=== PATIENT | female | born 1980 | race Caucasian/White ===

== ENCOUNTER 2017-03-25 23:43 | Emergency (ER) | payer OTHER ==
[2017-03-26 00:32] VITALS: BP 124/74; PULSE 83; TEMP 98.2; BMI 28.5
--- NOTE | 2017-03-26 00:47 | PDOC ---
History of Present Illness - General Chief Complaint: Pain Stated Complaint: ABD PAIN Time Seen by Provider: 03/26/17 00:47 History Source: Patient - History of Present Illness Initial Comments: 03/26/17 02:41 36 year old female c/o epigastric pain 2 hours after eating. pain is intermittent in nature, patient reports that she eats spicy food. denies nausea , vomiting, diarrhea, fever, headache. Past History - Past Medical History Allergies/Adverse Reactions: Allergies Allergy/AdvReac Type Severity Reaction Status Date / Time No Known Allergies Allergy Verified 03/26/17 00:26 Home Medications: Ambulatory Orders Mag Hydrox/Al Hydrox/Simeth [Maalox Advanced Suspension] 30 ml PO TID #1 bottle 03/26/17 Other medical history: denies - Psycho/Social/Smoking Cessation Hx Suicidal Ideation: No Smoking History: Never smoked Have you smoked in the past 12 months: No Information on smoking cessation initiated: No Hx Alcohol Use: No Drug/Substance Use Hx: No Review of Systems - Review of Systems Able to Perform ROS?: Yes Is the patient limited Icelandic proficient: No Constitutional: No: Symptoms Reported, See HPI, Chills, Diaphoresis, Fever, Loss of Appetite, Malaise, Night Sweats, Weakness, Weight Stable, Unintentional Wgt. Loss, Unexplained wgt Loss, Other ABD/GI: Yes: Abdominal cramping (epigastric area) *Physical Exam - Vital Signs Last Vital Signs Temp Pulse Resp BP Pulse Ox 98.2 F 83 14 124/74 99 03/26/17 00:26 03/26/17 00:26 03/26/17 00:26 03/26/17 00:26 03/26/17 00:26 - Physical Exam Respiratory/Chest: positive: Lungs Clear, Normal Breath Sounds Cardiovascular: positive: Regular Rhythm, Regular Rate Gastrointestinal/Abdominal: positive: Normal Bowel Sounds, Soft Musculoskeletal: positive: Normal Inspection Extremity: positive: Normal Capillary Refill, Normal Inspection, Normal Range of Motion Integumentary: positive: Normal Color, Dry, Warm Neurologic: positive: Fully Oriented, Alert, Normal Mood/Affect ED Treatment Course - LABORATORY CBC & Chemistry Diagram: 03/26/17 01:20 03/26/17 01:20 - RADIOLOGY Radiograph Interpretation: 03/28/17 00:45 US: no evidence of cholecystitis Progress Note - Progress Note Progress Note: A: gastritis, r/ o cholecystitis P: cbc cmp abdominal us Ua maalox pepcid IVF outpatient follow up *DC/Admit/Observation/Transfer Diagnosis at time of Disposition: Gastritis Qualifiers: Gastritis type: unspecified gastritis Chronicity: acute Gastritis bleeding: without bleeding Qualified Code(s): K29.00 - Acute gastritis without bleeding - Discharge Dispostion Disposition: HOME - Prescriptions Prescriptions: Mag Hydrox/Al Hydrox/Simeth [Maalox Advanced Suspension] 30 ml PO TID #1 bottle - Referrals Referrals: Edita Tyler MD [Primary Care Provider] - Renny Schmitz MD [Staff Physician] - - Patient Instructions Printed Discharge Instructions: Gastritis, Phillips Diet Additional Instructions: follow up with director of public works as soon as possible. Print Language: CZECH
[2017-03-26] MEDS ORDERED: FAMOTIDINE 20 MG/50 ML IVPB 50 ML IVPB ONE ×2 (00:49→00:53)
[2017-03-26 01:32] LABS: EOSINOPHIL 1.2 % (0-4.5); MCHC 33.1 g/dl (32.0-36.0); MEAN CELL VOLUME 87.8 fl (80-96); MEAN PLT VOLUME 9.5 fl (7.5-11.1); NEUTROPHILS 72.4 % (42.8-82.8); PLATELET COUNT 196 K/MM3 (134-434); RDW 13.9 % (11.6-15.6); WHITE BLOOD COUNT 10.7 K/mm3 (4.0-10.0)
[2017-03-26 01:49] LABS: URINE APPEARANCE CLEAR; URINE BILIRUBIN NEGATIVE (NEGATIVE); URINE BLOOD 1+ (NEGATIVE); URINE GLUCOSE (UA) NEGATIVE (NEGATIVE); URINE KETONE NEGATIVE (NEGATIVE); URINE LEUK ESTERASE NEGATIVE (NEGATIVE); URINE NITRITE NEGATIVE (NEGATIVE); URINE PROTEIN NEGATIVE (NEGATIVE); URINE UROBILINOGEN NEGATIVE mg/dL (0.2-1.0)
[2017-03-26 01:56] LABS: URINE BACTERIA RARE /hpf (NONE SEEN); URINE MUCUS RARE; URINE RBC 1 /hpf (0-3); URINE WBC 1 /hpf (3-5)
[2017-03-26 01:57] LABS: URINE COLOR YELLOW
[2017-03-26 02:03] LABS: ALBUMIN 4.1 g/dl (3.4-5.0); ALK PHOS 90 U/L (45-117); ANION GAP 8 (8-16); BILIRUBIN,TOTAL 0.4 mg/dL (0.2-1.0); CALCIUM 8.8 mg/dL (8.5-10.1); CO2 25 mmol/L (21-32); CREATININE 0.5 mg/dL (0.55-1.02); GLUCOSE,RANDOM 102 mg/dL (74-106); SGPT/ALT 29 U/L (12-78); TOT PROT 7.3 g/dl (6.4-8.2)
[2017-03-26 02:11] LABS: SGOT/AST 26 U/L (15-37)
[2017-03-26] MEDS ORDERED: MAG HYDROX/AL HYDROX/SIMETH 30 ML UNIT-DOSE CUP PO ONE (02:36)
[2017-03-26] MEDS ORDERED: MAG HYDROX/AL HYDROX/SIMETH 30 ML UNIT-DOSE CUP ONE (02:56)
--- NOTE | 2017-03-26 13:02 | EKG ---
Test Reason : Blood Pressure : / mmHG Vent. Rate : 071 BPM Atrial Rate : 071 BPM P-R Int : 130 ms QRS Dur : 074 ms QT Int : 392 ms P-R-T Axes : 050 050 058 degrees QTc Int : 425 ms NORMAL SINUS RHYTHM NONSPECIFIC T WAVE ABNORMALITY ABNORMAL ECG NO PREVIOUS ECGS AVAILABLE Confirmed by LIZZIE BARNES MD ([id number]) on 03/26/2017 1:02:09 PM Referred By: Confirmed By:LIZZIE BARNES MD
== END 2017-03-26 03:20 | disposition home or self-care (01) ==
LOC: JER 23:43
PROC: 3E033GC Introduction of Other Therapeutic Substance into Peripheral Vein, Percutaneous Approach (ICD-10-PCS; principal; 2017-03-25)
DX: K29.00 Acute gastritis without bleeding (principal)
CPT/HCPCS: 36415; 76705-TC; 80053; 81003; 81015; 83690; 84703; 85025; 93005; 93010; 96365; 99283-25

== ENCOUNTER 2020-05-25 10:50 | Emergency (ER) | payer OTHER ==
[2020-05-25 11:06] VITALS: BP 120/69; PULSE 85; TEMP 98.5; BMI 27.8
--- OUTSIDE RECORDS SUMMARY | 2020-05-25 11:21 | XMS ---
:1980 Author Organization [facility] Support Name Relationship Address Phone UE Unavailable Unavailable Unavailable ROSARIO BETH DAUGHTER [address] [phone] [place] [address] NA Unavailable Unavailable Unavailable ROSARIO HELM DA NA ROSARIO DELA CRUZ Child [address] [place] [address] HARLEY Unavailable [address] [place] [place] [address] Re-disclosure Warning The records that you are about to access may contain information from federally- assisted alcohol or drug abuse programs. If such information is present, then the following federally mandated warning applies: This information has been disclosed to you from records protected by federal confidentiality rules (42 CFR part 2). The federal rules prohibit you from making any further disclosure of this information unless further disclosure is expressly permitted by the written consent of the person to whom it pertains or as otherwise permitted by 42 CFR part 2. A general authorization for the release of medical or other information is NOT sufficient for this purpose. The Federal rules restrict any use of the information to criminally investigate or prosecute any alcohol or drug abuse patient.The records that you are about to access may contain highly sensitive health information, the redisclosure of which is protected by Article 27-F of the [facility] Public [facility] law. If you continue you may haveaccess to information: Regarding HIV / AIDS; Provided by facilities licensed or operated by the [facility] Office of Mental Health; or Provided by the [facility] Office for People With Developmental Disabilities. If such information is present, then the following [facility] mandated warning applies: This information has been disclosed to you from confidential records which are protected by state law. State law prohibits you from making any further disclosure of this information without the specific written consent of the person to whom it pertains, or as otherwise permitted by law. Any unauthorized further disclosure in violation of state law may result in a fine or care home sentence or both. A general authorization for the release of medical or other information is NOT sufficient authorization for further disclosure. Allergies and Adverse Reactions Type Description Substance Reaction Status Data Source(s ) No Known No Known Allergies No Known eCW3 ( [facility]) Encounters Encounter Providers Location Date Indications Data Source(s ) Emergency H 12/18/2018 [facility] 06:00:00 PM Medical Cente r EDT Outpatient [facility] 12/09/2018 eCW3 ([facility] 12:00:00 AM Health Care) EDT - 12/09/2018 12:00:00 AM EDT Medications Medication Brand Start Product Dose Route Administrative Pharmacy [facility] Indications Reaction Description Data Name Date Form Instructions Instructions Source(s) Calcium UNK active Calcium eCW3 ([facility]) Mirena UNK active Mirena eCW3 ([facility]) Ranitidine raniti 1 complet Corrie t 150 MG Oral dine ed [facility] Tablet HCl Medical ranitidine 150 mg Center HCl 150 mg Tablet Tablet, , Ordered By: Kirby López d By: Riddhi Israel ns: 1 Penar, tablet oral FNPDir daily ection s: 1 tablet oral daily Prednisone predni 2 complet Corrie t 20 MG Oral SONE ed Cristian Tablet 20 mg Medical predniSONE Tablet Center 20 mg , Tablet, Ordere Ordered By: d By: tanika KcPDirectronald Penar, ns: 2 FNPDir tablet oral ection daily s: 2 tablet oral daily Diphenhydra diphen 1 complet Imtiaz nt mine hydram ed Cristian Hydrochlori ine Medical de 25 MG HCl 25 Center Oral mg Capsule Capsul diphenhydra e, mine HCl 25 Ordere mg Capsule, d By: Ordered By: Jhonatan Forrest FNPDirectio FNPDir ns: 1 ection capsule s: 1 oral every capsul six hours e oral PRN itching every six hours PRN itchin g Fluconazole Flucon 1.0 active Fluconazo le eCW3 150 MG Oral azole {tabl 150 MG [facility] [facility] Metronidazo Flagyl 1.0 active Flagyl 50 0 eCW3 le 500 MG 500 MG {tabl MG ([facility] Oral Tablet et} [place] [Flagyl] [facility] Flagyl 500 Care) MG Insurance Providers Payer name Policy type Policy ID Covered Covered libertarian's Policy P lani / Coverage libertarian ID relationship to [employer] Inf ormation type mejia MEDICAID [id number] SP [id number] W [id number] 01 [id number] Problems, Conditions, and Diagnoses Code Display Name Description Problem Type Effective Data Sour ce(s) Dates Z97.5 IUD contraception IUD contraception Problem 11/18/2016 eCW3 ([facility] 12:00:00 AM [facility] Care) H11.002 Pterygium of left Pterygium of left Problem 11/18/2016 eCW3 ([facility] 12:00:00 AM [facility]) L25.9 Unspecified UNSPECIFIED Diagnosis 12/18/2018 [place] s contact CONTACT 06:00:00 PM Medical Cente r dermatitis, DERMATITIS, EDT unspecified cause UNSPECIFIED CAUSE R21 Rash and other RASH AND OTHER Diagnosis 12/18/2018 [facility] nonspecific skin NONSPECIFIC SKIN 06:00:00 PM edical [place] eruption ERUPTION EDT Social History Code Duration Value Status Description Data Source(s ) Smoking 12/18/2018 Denies Ever completed Denies Ever Smoked [facility] 06:16:00 PM EDT Smoked Medical C enter Smoking 12/18/2018 Denies Ever completed Denies Ever Smoked [facility] 06:16:00 PM EDT Smoked Medical C enter Smoking 12/18/2018 Denies Ever completed Denies Ever Smoked [facility] 06:03:00 PM EDT Smoked Medical C enter Smoking 12/09/2018 Never Smoker completed Never Smoker eCW3 ([place] [facility] 12:[facility]:00 AM EDT [facility]) Never Smoker completed Never Smoker eCW3 ([facility]) Vital Signs ID Date Data Source UNK Name Value Range Interpretation Code Description Data Source(s) Oxygen saturation 100 % 100 % [facility] in Arterial blood [facility] Center by Pulse oximetry Heart rate 84 /min 84 /min [facility] Body weight 55.022165 kg 55.933516 kg [facility] Body temperature 37.926610 37.232182 [facility] Respiratory rate 18 /min 18 /min [facility] Oxygen saturation 98 % 98 % [facility] in Arterial blood [facility] Center by Pulse oximetry Heart rate 95 /min 95 /min [facility] Body height 162.747118 162.325053 cm [facility] Diastolic blood 74 mm[Hg] 74 mm[Hg] [facility] pressure [facility] Systolic blood 130 mm[Hg] 130 mm[Hg] [facility] pressure [facility] Body mass index 20.8 kg/m2 20.8 kg/m2 [facility] (BMI) [Ratio] Medical [facility] [facility] Diastolic blood 64 mm[Hg] 64 mm[Hg] eCW3 ([facility]) Systolic blood 116 mm[Hg] 116 mm[Hg] eCW3 ([facility]) Body temperature 97.3 [degF] 97.3 [degF] eCW3 ( [facility]) Body mass index 28.47 kg/m2 28.47 kg/m2 eCW3 ( [place] (BMI) [Ratio] [facility]) Body weight 147 [lb_av] 147 [lb_av] eCW3 ([facility]) Body height 60.25 [in_i] 60.25 [in_i] eCW3 ([facility]) Patient Treatment Plan of Care Planned Activity Planned Date Details Description Data Source (s) Ranitidine 150 MG Oral Tablet [facility] Diphenhydramine Hydrochloride [facility] 25 MG Oral Capsule [place] Prednisone 20 MG Oral Tablet [facility]
[2020-05-25] MEDS ORDERED: LIDOCAINE 5% TOPICAL PATCH TP ONE (11:32)
[2020-05-25] MEDS ORDERED: KETOROLAC TROMETHAMINE 60 MG/2 ML VIAL IM ONE (11:32)
[2020-05-25] MEDS ORDERED: diazePAM 2 MG TABLET PO ONE (11:33)
[2020-05-25] MEDS ORDERED: LIDOCAINE 5% TOPICAL PATCH ONE (11:36)
[2020-05-25] MEDS ORDERED: diazePAM 2 MG TABLET ONE (11:37)
[2020-05-25] MEDS ORDERED: KETOROLAC TROMETHAMINE 30 MG/1 ML VIAL ONE (11:37)
--- NOTE | 2020-05-25 12:29 | PDOC ---
History of Present Illness - General Chief Complaint: Back Pain Stated Complaint: LWR BACK PAIN Time Seen by Provider: 05/25/20 11:11 History Source: Patient Exam Limitations: No Limitations Past History - Travel History Traveled outside of the country in the last 30 days: No Close contact w/someone who was outside of country & ill: No - Medical History Allergies/Adverse Reactions: Allergies Allergy/AdvReac Type Severity Reaction Status Date / Time No Known Allergies Allergy Verified 05/25/20 11:01 Home Medications: Ambulatory Orders Mag Hydrox/Aluminum Hyd/Simeth [Maalox Advanced Suspension] 30 ml PO TID #1 bottle 03/26/17 Cyclobenzaprine HCl [Flexeril 10 mg] 5 mg PO BID PRN #12 tablet 05/19/20 Methocarbamol [Robaxin -] 500 mg PO BID #14 tablet 05/25/20 Methylprednisolone [Medrol Dose Eber] 4 mg PO ASDIR #21 tablet 05/25/20 COPD: No - Reproductive History Is Patient Now?: No - Psycho-Social/Smoking History Smoking History: Never smoked Have you smoked in the past 12 months: No - Substance Abuse Hx (Audit-C & DAST Scrn) How often the patient has a drink containing alcohol: Never Score: In Men: 4 or > Positive; In Women: 3 or > Positive: 0 Screen Result (Pos requires Nsg. Audit-10AR): Negative In the last yr the pt used illegal drug/Rx for NonMed reason: No Score: Yes response is considered Positive: 0 Screen Result (Positive result requires Nsg. DAST-10): Negative Review of Systems - Review of Systems Able to Perform ROS?: Yes Comments:: 05/25/20 11:46 CONSTITUTIONAL: Absent: fever, chills, diaphoresis, generalized weakness, malaise, loss of appetite GASTROINTESTINAL: Absent: abdominal pain, abdominal distension, nausea, vomiting, diarrhea, constipation, melena, hematochezia GENITOURINARY: Absent: dysuria, frequency, urgency, hesitancy, hematuria, flank pain, genital pain MUSCULOSKELETAL: Present: low back pain,Left lower leg pain Absent: arthralgia, joint swelling SKIN: Absent: rash, itching, pallor NEUROLOGIC: Absent: headache, focal weakness or paresthesias, dizziness, unsteady gait, seizure, mental status changes, bladder or bowel incontinence PSYCHIATRIC: Absent: anxiety, depression, suicidal or homicidal ideation, hallucinations. Is the patient limited Ukrainian proficient: No *Physical Exam - Vital Signs Last Vital Signs Temp Pulse Resp BP Pulse Ox 98.5 F 85 16 120/69 100 05/25/20 11:02 05/25/20 11:02 05/25/20 11:02 05/25/20 11:02 05/25/20 11:02 - Physical Exam 05/25/20 11:47 GENERAL: Well developed, well nourished. Awake and alert. No acute distress. NECK: Supple. Full ROM. No lymphadenopathy. MUSCULOSKELETAL Normal range of motion at all joints. No bony deformities or tenderness. No CVA tenderness. EXTREMITIES: No cyanosis. No clubbing. No edema. No calf tenderness. SKIN: Warm and dry. Normal capillary refill. No rashes. No jaundice. NEUROLOGICAL: Alert, awake, appropriate. Cranial nerves 2-12 intact. No deficits to light touch and temperature in face, upper extremities and lower extremities. No motor deficits in the in face, upper extremities and lower extremities. Normoreflexic in the upper and lower extremities. Normal speech. Toes are down-going bilaterally. Gait is normal without ataxia. PSYCHIATRIC: Cooperative. Good eye contact. Appropriate mood and affect. ED Treatment Course - RADIOLOGY Radiology Studies Ordered: Category Date Time Status DUPLEX VASCUL US-1 LEG [US] Stat Ultrasound 05/25/20 11:32 Ordered - Medications Given in the ED: ED Medications Discontinued Medications Generic Name Dose Route Start Last Admin Trade Name Freq PRN Reason Stop Dose Admin Diazepam 2 mg 05/25/20 11:33 05/25/20 11:39 Valium - PO 05/25/20 11:34 2 mg ONCE ONE Administration Ketorolac Tromethamine 30 mg 05/25/20 11:32 05/25/20 11:39 Toradol Injection - IM 05/25/20 11:33 30 mg ONCE ONE Administration Lidocaine 1 patch 05/25/20 11:32 05/25/20 11:39 Lidoderm Patch - TP 05/25/20 11:33 1 patch ONCE ONE Administration Medical Decision Making - Medical Decision Making 05/25/20 11:47 The patient is a 39-year-old female who presents to the ER today for lower back pain for the past week. She states that this morning the pain is going down her left lower leg which brought her to the ER for evaluation. She states that she saw her primary care doctor yesterday and was prescribed naproxen however it has not helped her symptoms. She states that she also has this lump behind her left knee and was told to come for an ultrasound to evaluate for possibility of a blood clot. She states she has seen a chiropractor for her sciatica in the past and states that her back pain feels like her usual sciatica at this time. Denies numbness and tingling and weakness to the affected extremity, saddle anesthesia and bladder bowel incontinence. A/P: Sciatica/low back pain -Pt with TTP of the L paraspinous muscles with midline tenderness, L3-L5, with palpable knot consistent with muscle spasm. (+) straight leg raise testing on the L. Soft tissue edema to the posterior knee. -No trauma, or fever. No saddle anesthesia or bladder/bowel incontinence. No CVA tenderness. -Pt is neurologically intact on exam with no focal findings. -Ultrasound of soft tissue edema shows no evidence of blood clot or Lema's cyst at this time. Does not appear infectious. Will have patient follow-up with her primary care doctor. -Toradol, lidocane patch, valium, given with relief of symptoms -DC home. Ortho follow up given for if symptoms do not resolve. -I discussed the physical exam findings, ancillary test results and final diagnoses with the patient. I answered all of the patient's questions. The patient was satisfied with the care received and felt comfortable with the discharge plan and treatment plan. The Patient agrees to follow up with the primary care physician/specialist within 24-72 hours. Return precautions were given. Discharge - Discharge Information Problems reviewed: Yes Clinical Impression/Diagnosis: Low back pain Qualifiers: Chronicity: acute Back pain laterality: left Sciatica presence: with sciatica Sciatica laterality: sciatica of left side Qualified Code(s): M54.42 - Lumbago with sciatica, left side Condition: Stable Disposition: HOME - Admission No - Follow up/Referral Referrals: Boubacar Valdez DO [Staff Physician] - - Patient Discharge Instructions Patient Printed Discharge Instructions: DI for Low Back Pain Additional Instructions: You have low back pain due to a muscle spasm. Please take the medrol dose as directed. You were also prescribed robaxin; this is a muscle relaxer. Please take this medication every 8 hours for the first day. Then take the medication before you go to bed. Do not drive after taking this medication as it may make you sleepy. You may use warm compresses on your back to help with her symptoms. Please follow-up with your primary care doctor. If your symptoms do not resolve in 3-5 days, follow-up with orthopedics. A referral has been provided for you. Your ultrasound did not show any evidence of a blood clot. Return to the emergency department if you have worsening back pain, bladder or bowel incontinence, numbness and tingling in her legs, changes in the way you walk, or any new or worsening symptoms. Tiene dolor lumbar debido a un espasmo muscular. Por favor, tome la dosis de medrol sandeep se indica. Angelina le recetaron robaxin; maria eugenia es un relajante muscular. Por favor, tome maria eugenia medicamento cada 8 horas shireen el primer da. Luego teresita el medicamento antes de irte a la cama. No conduzca despus de christiane maria eugenia medicamento, ya que puede causarle sueo. Puedes usar compresas calientes en la espalda para ayudar con mary sntomas. Por favor, jessi un seguimiento con cid mdico de atencin primaria. Si mary sntomas no se resuelven en 3-5 tubbs, jessi un seguimiento con ortopedia. Se le sagastume proporcionado angelika referencia. La ecografa no mostr evidencia de un cogulo de charles. Regresa al departamento de emergencias si tienes un empeoramiento del dolor de espalda, incontinencia vesical o intestinal, entumecimiento y hormigueo en mary piernas, cambios en la forma de caminar o cualquier sntoma nuevo o que empeore. Print Language: MOHAWK - Post Discharge Activity Work/Back to School Note: Back to Work
[2020-05-25] MEDS ORDERED: LIDOCAINE PATCH REMOVAL MC SCH (22:00)
== END 2020-05-25 13:43 | disposition home or self-care (01) ==
LOC: JERFT 10:50
PROC: 3E0233Z Introduction of Anti-inflammatory into Muscle, Percutaneous Approach (ICD-10-PCS; principal; 2020-05-25)
DX: M54.42 Lumbago with sciatica, left side (principal)
CPT/HCPCS: 93971-TC; 99284-25

== ENCOUNTER 2020-06-14 21:44 | Emergency (ER) | payer OTHER ==
[2020-06-14 21:56] VITALS: BP 146/84; PULSE 95; TEMP 98.6; BMI 28.5
--- OUTSIDE RECORDS SUMMARY | 2020-06-14 22:03 | XMS ---
:1980 Author Organization [facility] Support Name Relationship Address Phone ASA HARLEY PARTNER [address] [phone] [place] [address] UE Unavailable Unavailable Unavailable HELM ROSARIO DELA CRUZ DAUGHTER [address] [place] [address] NA Unavailable Unavailable Unavailable HELM ROSARIO DA NA DELA CRUZ ROSARIO HELM Child [address] [place] [address] HARLEY Unavailable [address] [place] [address] Re-disclosure Warning The records that you are [...] is protected by Article 27-F of the [facility] Public Health law. If you continue you may haveaccess to information: Regarding HIV / AIDS; Provided by facilities licensed or operated by the [facility] Office of Mental Health; or Provided by the [facility] Office for People With Developmental Disabilities. If such information is present, then the following [facility] mandated warning applies: This information has been [...] law may result in a fine or half-way sentence or both. A general authorization for the release of medical or other information is NOT sufficient authorization for further disclosure. Insurance Providers Payer name Policy type Policy ID Covered Covered constitution party's Policy P lani / Coverage constitution party ID relationship to [employer] Inf ormation type me[place] MEDICAID [id number] SP [id number] CANCER [id number] SP [id number] SERVICE PROGRAM W [id number]
--- NOTE | 2020-06-14 23:57 | PDOC ---
History of Present Illness - General Chief Complaint: Rash Stated Complaint: HIVES/ PAIN LS ARM PAIN Time Seen by Provider: 06/14/20 23:41 History Source: Patient Exam Limitations: No Limitations - History of Present Illness Initial Comments: 06/15/20 00:00 39-year-old female no past medical history with left shoulder rash for 1 day. Patient states that she noticed a itchy painful rash on her left shoulder that is described as burning. Patient states the pain radiates towards her left arm. Patient put Benadryl cream on without any relief. Denies any contact with individuals. Denies any other symptoms including chest pain fevers chills shortness of breath dyspnea on exertion. Past History - Medical History Allergies/Adverse Reactions: Allergies Allergy/AdvReac Type Severity Reaction Status Date / Time No Known Allergies Allergy Verified 05/25/20 11:01 Home Medications: Ambulatory Orders Mag Hydrox/Aluminum Hyd/Simeth [Maalox Advanced Suspension] 30 ml PO TID #1 bottle 03/26/17 Cyclobenzaprine HCl [Flexeril 10 mg] 5 mg PO BID PRN #12 tablet 05/19/20 Methocarbamol [Robaxin -] 500 mg PO BID #14 tablet 05/25/20 Methylprednisolone [Medrol Dose Eber] 4 mg PO ASDIR #21 tablet 05/25/20 Ibuprofen [Ibu] 600 mg PO TID #21 tablet 06/14/20 Prednisone [Prednisone 50 MG TABLETS] 50 mg PO DAILY #5 tablet 06/14/20 Valacyclovir HCl [Valtrex] 1,000 mg PO TID #21 tablet 06/14/20 COPD: No - Reproductive History Is Patient Now?: No - Psycho-Social/Smoking History Smoking History: Never smoked Have you smoked in the past 12 months: No - Substance Abuse Hx (Audit-C & DAST Scrn) How often the patient has a drink containing alcohol: Never Score: In Men: 4 or > Positive; In Women: 3 or > Positive: 0 Screen Result (Pos requires Nsg. Audit-10AR): Negative In the last yr the pt used illegal drug/Rx for NonMed reason: No Score: Yes response is considered Positive: 0 Screen Result (Positive result requires Nsg. DAST-10): Negative *Physical Exam - Vital Signs Last Vital Signs Temp Pulse Resp BP Pulse Ox 98.6 F 95 H 18 146/84 98 06/14/20 21:52 06/14/20 21:52 06/14/20 21:52 06/14/20 21:52 06/14/20 21:52 - Physical Exam Gen: AAOx 3, no acute distress, comfortable, no signs of respiratory distress HENT: atraumatic, normocephalic with no laceration or contusion. Nasal mucosa without erythema. Oropharynx without erythema or exudates. Mucous membranes moist. EYES: PERRL, EOM intact, conjunctiva pink NECK: supple; trachea midline; no JVD, no lymphadenopathy, or thyromegaly CV: RRR no murmurs, gallops, or rubs. CHEST: CTA b/l no wheezing, rales or rhonchi ABD: +BS/ND. no TTP; soft, no rebound, no guarding EXTREMITY: no cyanosis or erythema. 2+ dorsalis pedis, posterior tibial, and radial pulse. No pedal edema; no calf swelling or tenderness SKIN: There is a vesicular linear rash to the left shoulder with weeping lesions consistent with herpes zoster warm and dry, no diaphoresis NEURO: normal speech, CN II-XII intact, sensation intact, normal gait, no cerebellar deficits MS: 5/5 strength in all extremities, FROM intact in all extremities. Medical Decision Making - Medical Decision Making 06/15/20 00:02 39-year-old female with rash consistent with shingles Vital signs stable Will discharge with Valtrex ibuprofen and 5-day course of prednisone Isolation precautions from people as well as others who have not had chickenpox or the vaccine given Patient to follow-up with PCP and neurology Pt appears well and is safe and stable for discharge with strict return precautions including signs and symptoms requring immediate return to the ED Supportive care instructions explained and given to pt. Reasons to return emergently to ER explained and given. Importance of follow up with PMD and other specialists as indicated stressed to pt. Pt verbalized understanding of instructions. Pt to follow up with PMD in 2 days. Discharge - Discharge Information Problems reviewed: Yes Clinical Impression/Diagnosis: Shingles Qualifiers: Herpes zoster complications: unspecified herpes zoster complication Qualified Code(s): B02.8 - Zoster with other complications Condition: Stable Disposition: HOME - Additional Discharge Information Prescriptions: Ibuprofen [Ibu] 600 mg PO TID #21 tablet Prednisone [Prednisone 50 MG TABLETS] 50 mg PO DAILY #5 tablet Valacyclovir HCl [Valtrex] 1,000 mg PO TID #21 tablet - Follow up/Referral Referrals: Chava Mistry MD [Staff Physician] - Esmer Cordova MD [Staff Physician] - - Patient Discharge Instructions Patient Printed Discharge Instructions: VERONIKA for [place] Print Language: BELIZEAN - Post Discharge Activity Work/Back to School Note: Back to Work
--- NOTE | 2020-06-14 23:58 | PDOC ---
*Physical Exam - Vital Signs Last Vital Signs Temp Pulse Resp BP Pulse Ox 98.6 F 95 H 18 146/84 98 06/14/20 21:52 06/14/20 21:52 06/14/20 21:52 06/14/20 21:52 06/14/20 21:52 Medical Decision Making - Medical Decision Making 06/14/20 23:58 Patient seen by the advanced practice provider under my supervision. Ancillary testing reviewed as necessary. I agree with plan as outlined by the advanced practice provider. Discharge - Discharge Information Problems reviewed: Yes Clinical Impression/Diagnosis: Shingles Qualifiers: Herpes zoster complications: unspecified herpes zoster complication Qualified Code(s): B02.8 - Zoster with other complications Condition: Stable Disposition: HOME - Additional Discharge Information Prescriptions: Ibuprofen [Ibu] 600 mg PO TID #21 tablet Prednisone [Prednisone 50 MG TABLETS] 50 mg PO DAILY #5 tablet Valacyclovir HCl [Valtrex] 1,000 mg PO TID #21 tablet - Follow up/Referral Referrals: Chava Mistry MD [Staff Physician] - Esmer Cordova MD [Staff Physician] - - Patient Discharge Instructions Patient Printed Discharge Instructions: DI for Shingles Print Language: AUSTR[place]IAN - Post Discharge Activity Work/Back to School Note: Back to Work
== END 2020-06-15 00:15 | disposition home or self-care (01) ==
LOC: JER 21:44
DX: B02.8 Zoster with other complications (principal)
CPT/HCPCS: 99283-25

== ENCOUNTER 2020-10-18 14:13 | Emergency (ER) | payer OTHER ==
[2020-10-18 14:20] VITALS: BMI 30.2
[2020-10-18 16:05] LABS: BASO % 0.7 % (0-2.0); EOS % 2.5 % (0-4.5); HEMATOCRIT 40.6 % (32.4-45.2); HEMOGLOBIN 13.7 GM/dL (10.7-15.3); LYMPH % 33.9 % (8-40); MCH 30.2 pg (25.7-33.7); MCHC 33.7 g/dl (32.0-36.0); MEAN CELL VOLUME 89.6 fl (80-96); MEAN PLT VOLUME 9.5 fl (7.5-11.1); MONO % 7.5 % (3.8-10.2); NEUT % 55.4 % (42.8-82.8); PLATELET COUNT 237 K/MM3 (134-434); RBC 4.53 M/mm3 (3.60-5.2); WHITE BLOOD COUNT 6.2 K/mm3 (4.0-10.0)
[2020-10-18 16:22] LABS: INR 0.96 (0.83-1.09); PROTHROMBIN TIME (PATIENT) 11.6 SEC (9.7-13.0)
[2020-10-18 16:28] LABS: CHLORIDE 108 mmol/L (98-107); POTASSIUM 4.3 mmol/L (3.5-5.1); SODIUM 140 mmol/L (136-145)
[2020-10-18 16:30] LABS: ALBUMIN 4.1 g/dl (3.4-5.0); ANION GAP 4 MMOL/L (8-16); BLOOD UREA NITROGEN 13.4 mg/dL (7-18); CALCIUM 9.3 mg/dL (8.5-10.1); CO2 28 mmol/L (21-32)
[2020-10-18 16:31] LABS: GLUCOSE,RANDOM 79 mg/dL (74-106)
[2020-10-18 16:34] LABS: CREATININE 0.6 mg/dL (0.55-1.3); SGOT/AST 22 U/L (15-37); SGPT/ALT 27 U/L (13-61)
[2020-10-18 16:35] LABS: BILIRUBIN,TOTAL 0.2 mg/dL (0.2-1); TOT PROT 7.6 g/dl (6.4-8.2)
[2020-10-18 16:36] LABS: ALK PHOS 94 U/L (45-117)
[2020-10-18 18:10] VITALS: BP 144/91; PULSE 78
== END 2020-10-18 18:10 | disposition home or self-care (01) ==
LOC: JER 14:13
DX: R07.89 Other chest pain (principal); M54.2 Cervicalgia
CPT/HCPCS: 36415; 71046-TC-FY; 80053; 82550; 84484; 85025; 85610; 93005; 93010; 99285-25; C9803; U0003

== ENCOUNTER 2021-03-03 01:14 | Emergency (ER) | payer OTHER ==
[2021-03-03 01:59] VITALS: TEMP 97.3; BMI 28.0
[2021-03-03] MEDS ORDERED: LACTATED RINGERS SOLUTION 1000 ML INFUS.BAG IV ONE (03:05)
[2021-03-03] MEDS ORDERED: ACETAMINOPHEN 1000 MG/100 ML VIAL (NON FORMULARY) IVPB ONE (03:05)
[2021-03-03] MEDS ORDERED: ACETAMINOPHEN INJECTION 100 ML IVPB ONE (03:25)
[2021-03-03 03:40] LABS: BASO % 0.2 % (0-2.0); EOS % 0.5 % (0-4.5); HEMATOCRIT 41.4 % (32.4-45.2); LYMPH % 3.7 % (8-40); MCH 29.5 pg (25.7-33.7); MCHC 33.7 g/dl (32.0-36.0); MEAN CELL VOLUME 87.3 fl (80-96); MEAN PLT VOLUME 8.9 fl (7.5-11.1); MONO % 6.4 % (3.8-10.2); NEUT % 89.2 % (42.8-82.8); PLATELET COUNT 222 10^3/uL (134-434); RBC 4.75 M/mm3 (3.60-5.2); RDW 13.1 % (11.6-15.6); WHITE BLOOD COUNT 18.1 K/mm3 (4.0-10.0)
[2021-03-03] MEDS ORDERED: MAG HYDROX/AL HYDROX/SIMETH 30 ML UNIT-DOSE CUP PO ONE (03:46)
[2021-03-03] MEDS ORDERED: MAG HYDROX/AL HYDROX/SIMETH 30 ML UNIT-DOSE CUP ONE (04:00)
[2021-03-03 04:16] LABS: CHLORIDE 107 mmol/L (98-107); SODIUM 138 mmol/L (136-145)
[2021-03-03 04:18] LABS: CALCIUM 8.6 mg/dL (8.5-10.1)
[2021-03-03 04:19] LABS: ALBUMIN 4.1 g/dl (3.4-5.0); ANION GAP 9 MMOL/L (8-16); BLOOD UREA NITROGEN 18.2 mg/dL (7-18); CO2 23 mmol/L (21-32); GLUCOSE,RANDOM 119 mg/dL (74-106); LIPASE 125 U/L (73-393)
[2021-03-03 04:22] LABS: SGOT/AST 22 U/L (15-37); SGPT/ALT 38 U/L (13-61)
[2021-03-03 04:23] LABS: BILIRUBIN,TOTAL 0.2 mg/dL (0.2-1); TOT PROT 7.5 g/dl (6.4-8.2)
[2021-03-03 04:25] LABS: ALK PHOS 99 U/L (45-117)
[2021-03-03 04:49] LABS: CREATININE 0.6 mg/dL (0.55-1.3)
[2021-03-03 05:20] LABS: URINE APPEARANCE Clear; URINE BILIRUBIN Negative (NEGATIVE); URINE COLOR Yellow; URINE GLUCOSE (UA) Negative (NEGATIVE); URINE KETONE Negative (NEGATIVE); URINE LEUK ESTERASE Negative (NEGATIVE); URINE NITRITE Negative (NEGATIVE); URINE PROTEIN Negative (NEGATIVE); URINE UROBILINOGEN 0.2 mg/dL (0.2-1.0)
[2021-03-03 06:45] VITALS: BP 121/75; PULSE 84
== END 2021-03-03 06:50 | disposition home or self-care (01) ==
LOC: JER 01:14
PROC: 3E0333Z Introduction of Anti-inflammatory into Peripheral Vein, Percutaneous Approach (ICD-10-PCS; principal; 2021-03-03)
DX: R10.84 Generalized abdominal pain (principal)
CPT/HCPCS: 36415; 74177-TC; 80053; 81003; 82550; 83690; 84484; 84703; 85025; 86850; 86900; 86901; 87086; 93005; 93010; 99285-25; J0131; Q9967

== ENCOUNTER 2022-01-09 07:27 | Emergency (ER) | payer OTHER ==
[2022-01-09 07:48] VITALS: BP 132/87; PULSE 113; TEMP 98.2; BMI 24.0
[2022-01-09] MEDS ORDERED: ACETAMINOPHEN 500 MG TABLET (FP) PO ONE (08:58)
[2022-01-09] MEDS ORDERED: ACETAMINOPHEN 500 MG TABLET (FP) ONE (09:17)
== END 2022-01-09 09:37 | disposition home or self-care (01) ==
LOC: JER 07:27
DX: R07.0 Pain in throat (principal)
CPT/HCPCS: 0241U-QW; 87651; 87807; 99283-25; C9803-CS; U0003; U0005

== ENCOUNTER 2022-08-12 21:13 | Emergency (ER) | payer OTHER ==
[2022-08-12 21:38] VITALS: BP 115/58; PULSE 93; RESP 20; TEMP 98.1; BMI 24.0
[2022-08-12] MEDS ORDERED: LIDOCAINE PATCH REMOVAL MC SCH (22:00)
[2022-08-12] MEDS ORDERED: LIDOCAINE 5% TOPICAL PATCH ONE (23:09)
[2022-08-12] MEDS ORDERED: LIDOCAINE 5% TOPICAL PATCH TP ONE (23:09)
[2022-08-12] MEDS ORDERED: KETOROLAC TROMETHAMINE 30 MG/1 ML VIAL IM ONE (23:09)
[2022-08-12] MEDS ORDERED: KETOROLAC TROMETHAMINE 30 MG/1 ML VIAL ONE (23:09)
== END 2022-08-12 23:14 | disposition home or self-care (01) ==
LOC: JER 21:13
PROC: 3E023GC Introduction of Other Therapeutic Substance into Muscle, Percutaneous Approach (ICD-10-PCS; principal; 2022-08-12)
DX: M54.42 Lumbago with sciatica, left side (principal)
CPT/HCPCS: 99284-25

== ENCOUNTER 2022-09-28 08:57 | Emergency (ER) | payer OTHER ==
[2022-09-28 09:09] VITALS: BP 119/67; PULSE 90; RESP 18; TEMP 98.1; BMI 21.9
[2022-09-28] MEDS ORDERED: KETOROLAC TROMETHAMINE 30 MG/1 ML VIAL IM ONE (10:10)
[2022-09-28] MEDS ORDERED: ACETAMINOPHEN 500 MG TABLET (FP) PO ONE (10:10)
[2022-09-28] MEDS ORDERED: predniSONE 20 MG TABLET (UD) PO ONE (10:10)
[2022-09-28] MEDS ORDERED: LIDOCAINE 5% TOPICAL PATCH TP ONE (10:10)
[2022-09-28] MEDS ORDERED: predniSONE 20 MG TABLET (UD) ONE (11:14)
[2022-09-28] MEDS ORDERED: KETOROLAC TROMETHAMINE 30 MG/1 ML VIAL ONE (11:14)
[2022-09-28] MEDS ORDERED: ACETAMINOPHEN 500 MG TABLET (FP) ONE (11:14)
[2022-09-28] MEDS ORDERED: LIDOCAINE 5% TOPICAL PATCH ONE (11:14)
[2022-09-28] MEDS ORDERED: LIDOCAINE PATCH REMOVAL MC SCH (22:00)
== END 2022-09-28 11:30 | disposition home or self-care (01) ==
LOC: JERFT 08:57 → JER 08:57 → JERFT 11:30
PROC: 3E0233Z Introduction of Anti-inflammatory into Muscle, Percutaneous Approach (ICD-10-PCS; principal; 2022-09-28)
DX: M54.32 Sciatica, left side (principal)
CPT/HCPCS: 99284-25

== ENCOUNTER 2022-12-09 18:39 | Emergency (ER) | payer OTHER ==
[2022-12-09 19:00] VITALS: BP 136/75; PULSE 82; RESP 16; TEMP 97.6; BMI 26.4
[2022-12-09] MEDS ORDERED: KETOROLAC TROMETHAMINE 30 MG/1 ML VIAL IM ONE (22:05)
[2022-12-09] MEDS ORDERED: KETOROLAC TROMETHAMINE 30 MG/1 ML VIAL ONE (22:14)
== END 2022-12-09 22:28 | disposition home or self-care (01) ==
LOC: JERFT 18:39
PROC: 3E0233Z Introduction of Anti-inflammatory into Muscle, Percutaneous Approach (ICD-10-PCS; principal; 2022-12-09)
DX: M25.562 Pain in left knee (principal); G89.29 Other chronic pain
CPT/HCPCS: 73564-TC-LT-FY; 99284-25

== ENCOUNTER 2023-10-02 18:10 | Emergency (ER) | payer OTHER ==
[2023-10-02 18:38] VITALS: BP 153/88; PULSE 89; RESP 18; TEMP 98.2; BMI 25.4
[2023-10-02] MEDS ORDERED: ACETAMINOPHEN 325 MG TABLET (FP) PO ONE (19:47)
[2023-10-02] MEDS ORDERED: LIDOCAINE 4% PATCH TP ONE ×2 (19:48→19:51)
[2023-10-02] MEDS ORDERED: IBUPROFEN 400 MG TABLET (FP) PO ONE ×2 (19:48→19:51)
[2023-10-02] MEDS ORDERED: ACETAMINOPHEN 325 MG TABLET (FP) ONE (19:51)
[2023-10-02] MEDS ORDERED: LIDOCAINE PATCH REMOVAL MC SCH (22:00)
== END 2023-10-02 20:11 | disposition home or self-care (01) ==
LOC: JERFT 18:10
DX: M54.2 Cervicalgia (principal)
CPT/HCPCS: 99283-25

== ENCOUNTER 2025-04-29 18:51 | Emergency (ER) | payer OTHER ==
[2025-04-29 19:18] VITALS: BP 140/82; PULSE 82; RESP 18; TEMP 98.6; BMI 25.4
[2025-04-29 19:58] LABS: HCG,QUALITATIVE URINE Negative
[2025-04-29 20:11] LABS: EPI CELLS 5 /uL (0-25.1); HYALINE CASTS 12 /uL (0-3.1); URINE APPEARANCE CLEAR; URINE BACTERIA 90 /uL (0-1359); URINE BILIRUBIN NEGATIVE (NEGATIVE); URINE COLOR YELLOW; URINE GLUCOSE (UA) NEGATIVE (NEGATIVE); URINE KETONE TRACE (NEGATIVE); URINE LEUK ESTERASE 1+ (NEGATIVE); URINE NITRITE NEGATIVE (NEGATIVE); URINE PROTEIN NEGATIVE (NEGATIVE); URINE RBC 69 /uL (0-23.9); URINE UROBILINOGEN 1.0 mg/dL (0.2-1.0); URINE WBC 593 /uL (0-25.8)
[2025-04-29] MEDS ORDERED: PHENAZOPYRIDINE HCL 100 MG TABLET (FP) ONE (20:52)
[2025-04-29] MEDS: PHENAZOPYRIDINE HCL 100 MG TABLET (FP) PO ONE (20:54)
== END 2025-04-29 21:05 | disposition home or self-care (01) ==
LOC: JERFT 18:51
DX: N30.01 Acute cystitis with hematuria (principal); R10.30 Lower abdominal pain, unspecified
CPT/HCPCS: 81003; 84703; 87086; 99283-25